=== PATIENT | female | born 1970 | race Caucasian/White ===

== ENCOUNTER 2017-03-22 06:10 | Day surgery (SDC) | payer BC, OTHER ==
[2017-03-22] VITALS (10 sets, daily range): BP systolic 109–128; BP diastolic 55–71; PULSE 74–96; RESP 12–18
[~2017-03-22] VITALS: Ht 152.4 cm; Wt 54.7 kg
[2017-03-22] MEDS ORDERED: DEXAMETHASONE 4 MG/ML 1 ML INJ ONE (06:57)
[2017-03-22] MEDS ORDERED: BUPIVACAINE 0.5% (SDV) 30 ML INJ ONE (06:57)
[2017-03-22] MEDS ORDERED: LIDOCAINE 0.5% (MDV) 50 ML INJ ONE (06:57)
[2017-03-22] MEDS ORDERED: POLYMYXIN/BACITRACIN 1L IRRIG ONE (06:59)
--- NOTE | 2017-03-22 07:44 | HPN ---
Date/Time of Note Date/Time of Note DATE: 03/22/17 TIME: 07:43 Interval H&P Admission Note Pt. seen H&P reviewed: Systems changes noted below ORLY SANTA DPM March 22, 2017 07:44
--- NOTE | 2017-03-22 07:47 | PDOCDIS ---
Discharge Instructions CONDITION Patient Condition: Good HOME CARE INSTRUCTIONS: Diet Instructions: Regular ACTIVITY: Activity Restrictions: Do not Drive Partial Weight Bearing (10 min per hour only with post op shoe) ORLY SANTA DPM March 22, 2017 07:47
--- NOTE | 2017-03-22 07:50 | PDOCDIS ---
Discharge Instructions DIAGNOSIS Discharge Diagnosis: bunionectomy correction right foot. CONDITION Patient Condition: Good HOME CARE INSTRUCTIONS: Diet Instructions: Regular ACTIVITY: Activity Restrictions: Do not Drive Partial Weight Bearing (10 min per hour only with post op shoe) FOLLOW UP/APPOINTMENTS Appointments follow up 1 week ORLY SANTA DPM March 22, 2017 07:50
[2017-03-22] MEDS ORDERED: FENTAnyl 50 MCG/ML VIAL ONE (07:57)
[2017-03-22] MEDS ORDERED: MIDAZOLAM 1 MG/ML 2 ML INJ ONE (07:57)
[2017-03-22] MEDS ORDERED: LIDOCAINE 2% (SDV) 5 ML INJ ONE (08:59)
[2017-03-22] MEDS ORDERED: CEFAZOLIN 1 GM INJ ONE (08:59)
[2017-03-22] MEDS ORDERED: PROPOFOL 20 ML ONE (08:59)
[2017-03-22] MEDS ORDERED: ONDANSETRON 4 MG INJ ONE (08:59)
[2017-03-22] MEDS ORDERED: HYDROmorphONE (0.2 MG/ML) 10ML SYG IV PRN ×2 (09:00)
[2017-03-22] MEDS ORDERED: FENTAnyl 50 MCG/ML VIAL IV PRN (09:00)
[2017-03-22] MEDS ORDERED: MEPERIDINE 25 MG INJ IV PRN (09:00)
[2017-03-22] MEDS ORDERED: ONDANSETRON 4 MG INJ IV PRN (09:00)
[2017-03-22] MEDS ORDERED: DIPHENHYDRAMINE 50 MG INJ IV PRN (09:00)
[2017-03-22] MEDS ORDERED: HYDROCODONE/APAP (7.5/325) TAB PO PRN (09:30)
--- NOTE | 2017-03-22 10:38 | OPR ---
DATE OF OPERATION: 03/22/2017 PREOPERATIVE DIAGNOSIS: Painful bunion with hallux valgus, right foot. POSTOPERATIVE DIAGNOSIS: Painful bunion with hallux valgus, right foot. PROCEDURE PERFORMED: 1. Bunionectomy with osteotomy, right first metatarsal. 2. Ravi osteotomy, right hallux. SURGEON: Mary Francis DPM ANESTHESIOLOGIST: Mehul Khan MD ANESTHESIA: Local with IV sedation. DESCRIPTION OF PROCEDURE: The patient was brought into the operating room, placed on the table in a secure supine position. Cardiac monitoring, IV sedation, and an ankle pneumatic tourniquet were ut ilized for this case. Preoperatively, a total of 20 mL of 0.5% Marcaine plain mixed with 2% lidocai ne plain were infiltrated into the right foot in the form of a Kelsey block. Upon achieving anesthesi a, the right foot and leg were prepped and draped in the usual sterile manner. Next, the ankle pneu matic tourniquet was inflated to 250 mmHg. Procedure #1 was then performed: Bunionectomy with distal head osteotomy, right first metatarsal. A 4 cm dorsal medial incision was performed along the metatarsophalangeal joint, centering at the me tatarsophalangeal joint. The incision was deepened. Superficial bleeders were then cauterized and bovied as necessary. The capsule was reflected dorsally and plantarly exposing the hypertrophic med ial eminence. The hypertrophic medial eminence was then resected with a power sagittal saw. Next t he 0.45 Valdez wire was inserted from medial to lateral serving as an access guide. A chevron os teotomy was performed 1.5 cm proximal to the metatarsophalangeal joint. The osteotomy was through-a nd-through at 60 degree angles. The capital fragment was translocated laterally 3 mm and fixated wi th a 16 mm x 3.0 mm cannulated Shanika screw. Good fixation was noted with no gapping or displaceme nt of the osteotomy. Good bone opposition was noted. The remaining bone was flushed smooth with th e power sagittal saw and rasped leaving no sharp edges behind. The area was irrigated with sterile saline mixed with bacitracin solution. Next, the incision was extended distally 2 cm for the Ravi osteotomy. The incision was deepened, chin perficial bleeders were cauterized. A 2 mm wedge of bone was removed at the base of the proximal p halanx leaving the lateral cortex intact. The osteotomy was fixated with a 2.0 mm x 24 mm cannulate d screw. Good opposition of bone edges were noted upon fixation. The toe was in the rectus positio n intraoperatively. The capsule was then closed with 2-0 Vicryl simple interrupted sutures. Subcut aneous tissue was closed with 4-0 Vicryl simple interrupted sutures and the skin edges were reapprox imated with a running 3-0 Prolene subcuticular stitch. The dressing consisted of 4 x 4 gauze, Xerof orm gauze, 4-inch Kerlix roll and 2-inch Coban into a semi-compressive dressing. Immediate hyperemi a was noted to all digits of the right foot upon deflating the ankle tourniquet. No intraoperative complications were encountered. The patient tolerated the above procedure well and left the OR with vital signs stable and satisfactory. The patient will follow up 1 week postop. Dictated By: MARY JACKSON Conf#: [id number] DID#: [id number]
== END 2017-03-22 10:46 | disposition home or self-care (01) ==
LOC: SDS 06:10
PROVIDERS: ATTEND Podiatrist Primary Podiatric Medicine
DX: M20.11 Hallux valgus (acquired), right foot (principal)
CPT/HCPCS: 28298; C1713; J0690; J1100; J2250; J2405; J3010; Q4131; Z7512; Z7610